=== PATIENT | male | born 1970 | race Caucasian/White ===

== ENCOUNTER 2019-05-07 09:42 | Observation (INO) | payer BC ==
[2019-05-07] MEDS ORDERED: ONDANSETRON 4 MG/2 ML VIAL IVP STA ×2 (10:34→14:30)
[2019-05-07] MEDS ORDERED: MORPHINE SULFATE 4 MG/ML SYRINGE IV STA (10:34)
[2019-05-07] MEDS ORDERED: PANTOPRAZOLE 40 MG/10 ML VIAL IVP STA (10:34)
--- NOTE | 2019-05-07 10:43 | ED ---
Abdominal Pain HPI - General Chief Complaint: Abdominal Pain Stated Complaint: Lower abd pain Time Seen by Provider: 05/07/19 10:14 Source: patient Mode of arrival: ambulatory Limitations: no limitations - History of Present Illness Initial Comments: Patient is a 49-year-old male with recent diagnosis of leukemia presenting to emergency Department with a chief complaint of nausea vomiting abdominal pain. States about 3 weeks ago he was transitioned to oral chemotherapy which she takes daily. States when he began taking oral medication he also developed right-sided abdominal pain along with nausea and vomiting but it resolved after several hours. States this time the pain is started since 3 AM and has not resolved. States the pain is sharp and constant in nature. States the pain is a 7. Reports nausea with multiple episodes of nonbilious, nonbloody vomiting. States he is not able to keep any fluids or solids down. Denies any fevers or chills at home. Denies taking any other medication to alleviate the symptoms. Denies any urinary symptoms. Denies any testicular pain, swelling, or penile discharge. Denies hematuria, hematochezia or melena. - Related Data Previous Rx's Medication Instructions Recorded Aspirin EC [Ecotrin Low Dose] 81 mg PO DAILY tablet. 08/01/14 Atorvastatin [Lipitor] 40 mg PO DAILY #30 tab 08/01/14 Chlorthalidone [Hygroton] 25 mg PO DAILY #30 tab 08/01/14 INSULIN LISPRO (humaLOG) [humaLOG] 0 unit SQ ACHS #1 vial 08/01/14 INSULIN LISPRO (humaLOG) [humaLOG] 10 unit SQ AC-TID #1 vial 08/01/14 Insulin Glargine [Lantus] 42 unit SQ HS #1 vial 08/01/14 Lisinopril [Zestril] 10 mg PO DAILY #30 tab 08/01/14 Spironolactone [Aldactone] 25 mg PO DAILY #30 tab 08/01/14 Carvedilol [Coreg*] 12.5 mg PO BID-W/MEALS #60 tab 08/04/14 Warfarin Sodium [Coumadin] 5 mg PO DAILY #30 tab 08/04/14 amLODIPine [Norvasc] 5 mg PO HS #30 tab 08/04/14 hydrALAZINE HCL [Apresoline] 50 mg PO BID #60 tab 08/04/14 Allergies Allergy/AdvReac Type Severity Reaction Status Date / Time No Known Allergies Allergy Verified 07/27/14 10:02 Review of Systems ROS Statement: Those systems with pertinent positive or pertinent negative responses have been documented in the HPI. ROS Other: All systems not noted in ROS Statement are negative. Past Medical History Past Medical History: Cancer Additional Past Medical History / Comment(s): Hypertension and hypertensive cardio vascular disease, diabetes mellitus type 2 for the past 5 years, hyperlipidemia, obesity, obstructive sleep apnea with obesity hypertension syndrome, history of tongue cancer. leukemia History of Any Multi-Drug Resistant Organisms: None Reported Additional Past Surgical History / Comment(s): Cancer removed from the side of the tongue. Past Anesthesia/Blood Transfusion Reactions: No Reported Reaction Past Psychological History: No Psychological Hx Reported Smoking Status: Former smoker Past Alcohol Use History: Unable to Obtain Past Drug Use History: Unable to Obtain - Past Family History Mother Family Medical History: Musculoskeletal Disorder (Mother is alive she 67-year-old has history of osteogenesis imperfecta.), Osteoarthritis (OA) Father Family Medical History: Diabetes Mellitus, Hypertension, Thyroid Disorder (Father 69-year-old has history of diabetes hypertension and hypothyroidism.) Sister(s) Family Medical History: Musculoskeletal Disorder (Patient has 2 sisters with osteogenesis imperfecta.) Daughter(s) Family Medical History: No Reported History (One daughter no major medical problems.) Son(s) Family Medical History: No Reported History (Once on no major medical problems.) General Exam Limitations: no limitations General appearance: alert, in no apparent distress, obese Head exam: Present: atraumatic, normocephalic, normal inspection Eye exam: Present: normal appearance Pupils: Present: normal accommodation ENT exam: Present: normal exam, normal oropharynx, mucous membranes moist Neck exam: Present: normal inspection, full ROM. Absent: lymphadenopathy Respiratory exam: Present: normal lung sounds bilaterally. Absent: respiratory distress Cardiovascular Exam: Present: regular rate, normal rhythm, normal heart sounds GI/Abdominal exam: Present: soft, tenderness (Right upper quadrant, right lower quadrant.). Absent: distended, guarding, rebound, rigid Extremities exam: Present: normal inspection, full ROM, normal capillary refill, other (+2 ulnar and radial pulses bilaterally.) Back exam: Present: normal inspection, full ROM. Absent: tenderness Neurological exam: Present: alert, oriented X3 Psychiatric exam: Present: normal affect, normal mood Skin exam: Present: warm, dry, intact, normal color Course Vital Signs 05/07/19 05/07/19 05/07/19 09:46 11:48 12:35 Temperature 97.5 F L 97.4 F L Pulse Rate 67 67 71 Respiratory 19 18 18 Rate Blood Pressure 186/94 170/91 182/97 O2 Sat by Pulse 100 99 98 Oximetry 05/07/19 14:15 Temperature 97.8 F Pulse Rate 69 Respiratory 18 Rate Blood Pressure 168/87 O2 Sat by Pulse 98 Oximetry Medical Decision Making - Medical Decision Making Patient is a 49-year-old male with history of recently diagnosed leukemia presenting to the emergency department with a chief complaint of abdominal pain nausea vomiting. I patient does have right upper quadrant tenderness with a positive Joya sign. Does have right lower quadrant with positive Gunn McBurney point tenderness. Right CVA tenderness. No urinary symptoms. Patient initially suspect this is due to chemo. Patient given fluids antiemetics and analgesia. On reevaluation patient reports improvement in the pain but nausea still persists. By mouth challenge failed. CBC does show anemia which has improved since the last blood draw. CT of abdomen and pelvis shows right-sided hydronephrosis with a 3 mm obstructing stone. Initial labs indicate hyperkalemia of 5.6. Labs were drawn showing potassium levels of 5.2. I suspect the sample was hemolyzed. UA shows hematuria. Patient does have decreased renal function although that appears to be his baseline. Patient states the pain in the right side of his abdomen still persist. Patient feels comfortable if he is admitted for at least one night of observation. Case discussed with . Admitting physician is Dr. Duran - Lab Data Result diagrams: 05/07/19 10:20 05/07/19 12:43 Lab Results 05/07/19 05/07/19 05/07/19 Range/Units 10:20 10: 12:43 WBC 4.6 (3.8-10.6) k/uL RBC 3.18 L (4.30-5.90) m/uL Hgb 9.9 L (13.0-17.5) gm/dL Hct 29.1 L (39.0-53.0) % MCV 91.6 D (80.0-100.0) fL MCH 31.3 (25.0-35.0) pg MCHC 34.2 (31.0-37.0) g/dL RDW 22.1 H (11.5-15.5) % Plt Count 90 L D (150-450) k/uL Neutrophils % 85 % Lymphocytes % 7 % Monocytes % 6 % Eosinophils % 1 % Basophils % 0 % Neutrophils # 3.9 (1.3-7.7) k/uL Lymphocytes # 0.3 L (1.0-4.8) k/uL Monocytes # 0.3 (0-1.0) k/uL Eosinophils # 0.0 (0-0.7) k/uL Basophils # 0.0 (0-0.2) k/uL Manual Slide Review Performed Hyperchromasia Slight Poikilocytosis Moderate Anisocytosis Moderate Macrocytosis Slight Sodium 136 L 134 L (137-145) mmol/L Potassium 5.6 H 5.2 H (3.5-5.1) mmol/L Chloride 102 103 (98-107) mmol/L Carbon Dioxide 22 22 (22-30) mmol/L Anion Gap 12 9 mmol/L BUN 23 H 24 H (9-20) mg/dL Creatinine 1.31 H 1.39 H (0.66-1.25) mg/dL Est GFR (CKD-EPI)AfAm 73 68 (>60 ml/min/1.73 sqM) Est GFR (CKD-EPI)NonAf 63 59 (>60 ml/min/1.73 sqM) Glucose 196 H 183 H (74-99) mg/dL Calcium 9.0 8.6 (8.4-10.2) mg/dL Total Bilirubin 1.3 (0.2-1.3) mg/dL AST 24 (17-59) U/L ALT 23 (4-49) U/L Alkaline Phosphatase 74 (38-126) U/L Total Protein 7.5 (6.3-8.2) g/dL Albumin 5.0 (3.5-5.0) g/dL Amylase 39 (30-110) U/L Lipase 60 (23-300) U/L Urine Color Urine Appearance (Clear) Urine pH (5.0-8.0) Ur Specific Maryneal (1.001-1.035) Urine Protein (Negative) Urine Glucose (UA) (Negative) Urine Ketones (Negative) Urine Blood (Negative) Urine Nitrite (Negative) Urine Bilirubin (Negative) Urine Urobilinogen (<2.0) mg/dL Ur Leukocyte Esterase (Negative) Urine RBC (0-5) /hpf Urine WBC (0-5) /hpf Ur Squamous Epith Cells (0-4) /hpf Urine Bacteria (None) /hpf Urine Mucus (None) /hpf 05/07/19 Range/Units 12:49 WBC (3.8-10.6) k/uL RBC (4.30-5.90) m/uL Hgb (13.0-17.5) gm/dL Hct (39.0-53.0) % MCV (80.0-100.0) fL MCH (25.0-35.0) pg MCHC (31.0-37.0) g/dL RDW (11.5-15.5) % Plt Count (150-450) k/uL Neutrophils % % Lymphocytes % % Monocytes % % Eosinophils % % Basophils % % Neutrophils # (1.3-7.7) k/uL Lymphocytes # (1.0-4.8) k/uL Monocytes # (0-1.0) k/uL Eosinophils # (0-0.7) k/uL Basophils # (0-0.2) k/uL Manual Slide Review Hyperchromasia Poikilocytosis Anisocytosis Macrocytosis Sodium (137-145) mmol/L Potassium (3.5-5.1) mmol/L Chloride (98-107) mmol/L Carbon Dioxide (22-30) mmol/L Anion Gap mmol/L BUN (9-20) mg/dL Creatinine (0.66-1.25) mg/dL Est GFR (CKD-EPI)AfAm (>60 ml/min/1.73 sqM) Est GFR (CKD-EPI)NonAf (>60 ml/min/1.73 sqM) Glucose (74-99) mg/dL Calcium (8.4-10.2) mg/dL Total Bilirubin (0.2-1.3) mg/dL AST (17-59) U/L ALT (4-49) U/L Alkaline Phosphatase (38-126) U/L Total Protein (6.3-8.2) g/dL Albumin (3.5-5.0) g/dL Amylase (30-110) U/L Lipase (23-300) U/L Urine Color Yellow Urine Appearance Clear (Clear) Urine pH 5.5 (5.0-8.0) Ur Specific Maryneal 1.019 (1.001-1.035) Urine Protein 1+ H (Negative) Urine Glucose (UA) Trace H (Negative) Urine Ketones Negative (Negative) Urine Blood Large H (Negative) Urine Nitrite Negative (Negative) Urine Bilirubin Negative (Negative) Urine Urobilinogen <2.0 (<2.0) mg/dL Ur Leukocyte Esterase Negative (Negative) Urine RBC >182 H (0-5) /hpf Urine WBC 5 (0-5) /hpf Ur Squamous Epith Cells <1 (0-4) /hpf Urine Bacteria Rare H (None) /hpf Urine Mucus Rare H (None) /hpf - EKG Data EKG Comments: Normal sinus rhythm, no ST changes, no T-wave inversions. Ventricular rate 67, NH 190, QRS 94, QTC 439 Disposition Clinical Impression: Nephrolithiasis, Abdominal pain, Nausea & vomiting Disposition: ADMITTED IP TO THIS HOSP Condition: Stable Instructions (If sedation given, give patient instructions): Abdominal Pain (ED) Additional Instructions: Patient will be admitted Is patient prescribed a controlled substance at d/c from ED?: No Referrals: Natanael Flores MD [Primary Care Provider] - 1-2 days Time of Disposition: 14:36
[2019-05-07 11:19] LABS: Anisocytosis Moderate; Basophils % (A) 0 %; Eosinophils % (A) 1 %; HCT 29.1 % (39.0-53.0); HGB 9.9 gm/dL (13.0-17.5); Hyperchromasia Slight; Lymphocytes # (A) 0.3 k/uL (1.0-4.8); Lymphocytes % (A) 7 %; MCH 31.3 pg (25.0-35.0); MCHC 34.2 g/dL (31.0-37.0); Macrocytosis Slight; Mean Platelet Volume 8.8; Monocytes # (A) 0.3 k/uL (0-1.0); Monocytes % (A) 6 %; Neutrophils # (A) 3.9 k/uL (1.3-7.7); Neutrophils % (A) 85 %; Poikilocytosis Moderate; RBC 3.18 m/uL (4.30-5.90); RDW 22.1 % (11.5-15.5); WBC 4.6 k/uL (3.8-10.6)
[2019-05-07 11:22] LABS: MCV 91.6 fL (80.0-100.0)
[2019-05-07 11:32] LABS: Platelet Count 90 k/uL (150-450)
[2019-05-07 11:39] LABS: Potassium 5.6 mmol/L (3.5-5.1); Total Bilirubin 1.3 mg/dL (0.2-1.3); Total Protein 7.5 g/dL (6.3-8.2)
--- NOTE | 2019-05-07 12:25 | CT ---
EXAMINATION TYPE: CT abdomen pelvis w con DATE OF EXAM: 05/07/2019 COMPARISON: None HISTORY: Right lower quadrant tenderness CT DLP: 2918 mGycm Automated exposure control for dose reduction was used. CONTRAST: CT scan of the abdomen pelvis is performed with IV Contrast, patient injected with 100 mL of Isovue 3 00. FINDINGS- exam limited by suboptimal enhancement. LUNG BASES-subsegmental changes at the lung base most typical atelectasis. Heart is mildly prominent. . LIVER/GB-there is hepatomegaly with a liver measuring 19.4 cm.. PANCREAS- No gross abnormality is seen. SPLEEN-spleen measures 19.7 cm compatible splenomegaly.. ADRENALS- No gross abnormality is seen. KIDNEYS/BLADDER-there is moderate right hydronephrosis secondary to a obstructing 3 mm proximal right ureteral calculus. No definite calcifications on the left. No left-sided hydronephrosis. Mild right perinephric edema noted. BOWEL- no bowel dilatation. Normal appendix. LYMPH NODES- No greater than 1cm abdominal or pelvic lymph nodes areappreciated. OSSEOUS STRUCTURES-hypertrophic and degenerative change of the spine.. OTHER- aorta of normal caliber. Atherosclerotic changes are seen. IMPRESSION- 1. Moderate right hydronephrosis secondary to obstructing 3 mm right proximal ureteral calculus. 2. Hepatosplenomegaly as measured above. Could be secondary to the patient's history of leukemia. Cor relate with liver function studies.
[2019-05-07 13:27] LABS: Appearance,Urine Clear (Clear); Bacteria,Urine Rare /hpf; Bilirubin,Urine Negative (Negative); Blood,Urine Large (Negative); Color,Urine Yellow; Glucose,Urine (UA) Trace (Negative); Ketones,Urine Negative (Negative); Leukocyte Esterase,Urine Negative (Negative); Mucus,Urine Rare /hpf; Nitrite,Urine Negative (Negative); PH, Urine 5.5 (5.0-8.0); Protein,Urine 1+ (Negative); RBC,Urine >182 /hpf (0-5); Specific Gravity,Urine 1.019 (1.001-1.035); Squamous Epithelial Cell,Urine <1 /hpf (0-4); Urobilinogen,Urine <2.0 mg/dL (<2.0); WBC,Urine 5 /hpf (0-5)
[2019-05-07 14:00] LABS: Calcium 8.6 mg/dL (8.4-10.2); Potassium 5.2 mmol/L (3.5-5.1)
[2019-05-07] MEDS ORDERED: HYDROcodone/APAP 5-325MG 1 EACH TAB PO PRN (14:38)
[2019-05-07] MEDS ORDERED: NALOXONE 0.4 MG/ML 1 ML VIAL IV PRN (14:38)
[2019-05-07] MEDS ORDERED: LORazepam 2 MG/ML INJ IV PRN (14:38)
[2019-05-07] MEDS ORDERED: HYDROmorphone 0.5 MG/0.5 ML SYRINGE IVP PRN (14:38)
[2019-05-07] MEDS ORDERED: MORPHINE SULFATE 4 MG/ML SYRINGE IV PRN (14:38)
[2019-05-07] MEDS ORDERED: ONDANSETRON 4 MG/2 ML VIAL IVP PRN (14:38)
[2019-05-07] MEDS: SODIUM CHLORIDE 0.9% 1,000 ML IV SCH (19:02)
[2019-05-08 05:09] VITALS: RESP 16
[2019-05-08 07:17] LABS: Glucose,Whole Blood 111 mg/dL (75-99)
[2019-05-08] MEDS: SODIUM CHLORIDE 0.9% 1,000 ML IV SCH (07:56)
[2019-05-08 11:11] LABS: Glucose,Whole Blood 133 mg/dL (75-99)
[2019-05-08] MEDS ORDERED: TAMSULOSIN 0.4 MG CAP.ER.24H PO STA (11:41)
[2019-05-08 11:44] VITALS: BP 153/82; PULSE 69; TEMP 97.7
[2019-05-08] MEDS ORDERED: INSULIN ASPART (NovoLOG) 100 UNIT/ML VIAL SQ SCH (12:30)
--- NOTE | 2019-05-08 12:35 | US ---
EXAMINATION TYPE: US kidneys/renal and bladder DATE OF EXAM: 05/08/2019 COMPARISON: CT 2019 CLINICAL HISTORY: hydronephrosis, passed stone. History of right kidney stone, hematuria EXAM MEASUREMENTS: Right Kidney: 12.5 x 7.3 x 5.8 cm Left Kidney: 12.5 x 6.4 x 6.0 cm Right Kidney: mild hydronephrosis Left Kidney: no hydronephrosis or masses seen Bladder: wnl Bilateral Jets seen: no There is no evidence for hydronephrosis at this point in time. No nephrolithiasis is seen. No tariq s are identified. The urinary bladder is anechoic. Bilateral ureteral jets are seen. IMPRESSION: Mild hydronephrosis
--- NOTE | 2019-05-08 17:03 | P.GSCN ---
History of Present Illness Consult date: 05/08/19 Reason for Consult: right sided ureteral calculi History of present illness: Mr Matute is a 49-year-old male with recent diagnosis of leukemia presented to the ED with right sided flank pain that is associated with nausea and vomiting. He also complained of hematuria, but ludy any dysuria or any other urinary symptoms. Denies any fever/chills. In ED he underwent a CT which showed a 3 mm right sided proximal stone with mild hydronephrosis. He denies any previous hx of stones. In evaluation this afternoon he is asymptomatic. Review of Systems - Constitutional Denies chills, Denies fever, Denies weakness - EENT Ears, nose, mouth and throat: Denies dysphagia, Denies headache - Cardiovascular Denies chest pain, Denies shortness of breath - Respiratory Denies cough, Denies wheezing - Gastrointestinal Reports nausea, Reports vomiting - Genitourinary Reports flank pain, Reports kidney stones - Musculoskeletal Denies low back pain, Denies muscle weakness - Neurological Denies confusion, Denies weakness - Psychiatric Denies confusion, Denies hallucinations Past Medical History Past Medical History: Cancer, CVA/TIA, Diabetes Mellitus, Hyperlipidemia, Hypertension Additional Past Medical History / Comment(s): Hypertension and hypertensive cardio vascular disease, diabetes mellitus type 2 for the past 5 years, hyperlipidemia, obesity, obstructive sleep apnea with obesity hypertension syndr ome, history of tongue cancer. leukemia, CVA left sided weakness. History of Any Multi-Drug Resistant Organisms: None Reported Past Surgical History: Heart Catheterization Additional Past Surgical History / Comment(s): Cancer removed from the side of the tongue. Bone marrow biopsy, heart cath Past Anesthesia/Blood Transfusion Reactions: No Reported Reaction Past Psychological History: No Psychological Hx Reported Smoking Status: Former smoker Past Alcohol Use History: Unable to Obtain Additional Past Alcohol Use History / Comment(s): Patient was a smoker of one and a half packs per day for 30 years and quit 10 years ago. He uses marijuana Past Drug Use History: Marijuana Additional Drug Use History / Comment(s): occasional eatable marijuana use. - Past Family History Mother Family Medical History: Musculoskeletal Disorder, Osteoarthritis (OA) Additional Family Medical History / Comment(s): Mother Father Family Medical History: Diabetes Mellitus, Hypertension, Thyroid Disorder Sister(s) Family Medical History: Musculoskeletal Disorder Additional Family Medical History / Comment(s): Patient has 2 sisters with osteogenesis imperfecta. Daughter(s) Family Medical History: No Reported History Additional Family Medical History / Comment(s): Patient has one daughter with no major medical problems. Son(s) Family Medical History: No Reported History Additional Family Medical History / Comment(s): Patient has one son with no major medical problems. Medications and Allergies Home Medications Medication Instructions Recorded Confirmed Type Atorvastatin [Lipitor] 40 mg PO HS@199905/07/19 05/07/19 History Carvedilol [Coreg*] 12.5 mg PO BID@08,199905/07/19 05/07/19 History Dasatinib [Sprycel] 100 mg PO HS@199905/07/19 05/07/19 History Gemfibrozil [Lopid] 600 mg PO AC-BID@799,199905/07/19 05/07/19 History Insulin Glargine,Hum.rec.anlog See Protocol SQ AC-BID 05/07/19 05/07/19 History [Toujeo Solostar] Levothyroxine Sodium [Synthroid] 75 mcg PO DAILY@0805/07/19 05/07/19 History Sennosides [Senna] 8.6 mg PO DAILY@0800 05/07/19 05/07/19 History Spironolactone [Aldactone] 25 mg PO DAILY@0800 05/07/19 05/07/19 History Allopurinol [Zyloprim] 100 mg PO DAILY #30 tab 05/08/19 Rx Ondansetron [Zofran] 4 mg PO Q8HR PRN #30 tab 05/08/19 Rx Tamsulosin [Flomax] 0.4 mg PO DAILY #30 cap 05/08/19 Rx Allergies Allergy/AdvReac Type Severity Reaction Status Date / Time No Known Allergies Allergy Verified 05/07/19 16:14 Surgical - Exam Vital Signs Temp Pulse Resp BP Pulse Ox 97.5 F L 67 19 186/94 100 05/07/19 09:46 05/07/19 09:46 05/07/19 09:46 05/07/19 09:46 05/07/19 09:46 - General well developed, well nourished, no distress, no pain - ENT normal mucosa, no hearing loss - Abdomen Abdomen: soft, non tender - Psychiatric oriented to time, oriented to person, oriented to place, speech is normal Results - Labs 05/07/19 10:20 05/07/19 12:43 Abnormal Lab Results - Last 24 Hours (Table) 05/08/19 05/08/19 Range/Units 07:16 11:10 POC Glucose (mg/dL) 111 H 133 H (75-99) mg/dL - Imaging CT scan - abdomen: image reviewed (3 mm right sided proximal stone) Assessment and Plan Assessment: 49 yo male with hx of 3mm right sided proximal stone, he is asymptomatic right now. no previous hx of stone -Ok for discharge as an outpatient, trial of passage, I discussed with him given the stone size he most likely will be able to pass it spontaneously -F/U as an outpatient in 2 weeks
[2019-05-08] MEDS ORDERED: FENOFIBRATE 160 MG TAB PO SCH (17:30)
[2019-05-08] MEDS ORDERED: NON FORMULARY DRUG (Dasatinib [Sprycel] 100 MG) PO SCH (20:00)
[2019-05-08] MEDS ORDERED: CARVEDILOL 12.5 MG TAB PO SCH (20:00)
[2019-05-08] MEDS ORDERED: ATORVASTATIN 40 MG TAB PO SCH (20:00)
[2019-05-08] MEDS ORDERED: HEPARIN SODIUM,PORCINE 5,000 UNIT/ML 1 ML VIAL SQ SCH (21:00)
[2019-05-09] MEDS ORDERED: PANTOPRAZOLE 40 MG TABLET PO SCH (07:30)
[2019-05-09] MEDS ORDERED: SENNOSIDES 8.6 MG TAB PO SCH (08:00)
[2019-05-09] MEDS ORDERED: LEVOTHYROXINE 75 MCG TAB PO SCH (08:00)
[2019-05-09] MEDS ORDERED: SPIRONOLACTONE 25 MG TAB PO SCH (08:00)
--- NOTE | 2019-05-09 08:23 | P.HPIM ---
History of Present Illness H&P Date: 05/08/19 Chief Complaint: Nausea, vomiting, abdominal pain HISTORY AND PHYSICAL AND DISCHARGE SUMMARY: This is a 49-year-old male patient of Dr. 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 Patient is under the care of Dr. 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 He was on Hydrea for 3 months and then changed to dasatinib for approximately the last 3 weeks. Patient denies any history of kidney stones. Patient had a stress test done with Dr. Marroquin's office on Sunday by Sunday evening he started having pain along with nausea and vomiting. Pain was on the right side sharp and rated as a #7 out of 10. He had multiple episodes of vomiting and was unable to keep any food or liquids down. He denies having any fever or chills. Patient came into [facility] emergency center for evaluation. WBC 4.6, hemoglobin 9.9, platelet count 90. Sodium 134, potassium 5.2, chloride 103, CO2 22, BUN 24 and creatinine 1.39, blood sugar 183. Liver function tests within normal limits. Urinalysis clear, blood large, RBCs greater than 182. EKG normal sinus rhythm with no acute ST-T wave changes. CAT scan of the abdomen and pelvis revealed moderate right hydronephrosis secondary to obstructive 3 mm right proximal ureteral calculi, hepatosplenomegaly. Patient admitted to the [facility] floor and consult request with urology. By the time of evaluation, patient felt that he had passed the stone as his pain was completely relieved. We ordered a renal ultrasound that showed a mild hydronephrosis. Uric acid level VII.5 and patient was started on allopurinol. Patient did have extremely high uric acid at that time he was diagnosed with CML and he was taken off his medication once he started his chemotherapy. Patient was also started on Flomax and Zofran when necessary. Patient was discharged home in stable condition. Review of Systems Constitutional: Denies chills, Denies fatigue, Denies fever, Denies lethargy, Denies malaise Eyes: denies blurred vision, denies pain Ears, nose, mouth and throat: Denies dental pain, Denies dysphagia, Denies headache, Denies nasal congestion, Denies nasal discharge, Denies sore throat, Denies vertigo Cardiovascular: Denies chest pain, Denies decreased exercise tolerance, Denies dyspnea on exertion, Denies edema, Denies leg edema, Denies lightheadedness, Denies palpitations, Denies shortness of breath, Denies syncope Respiratory: Reports sleep apnea, Denies cough, Denies cough with sputum, Denies dyspnea, Denies excessive sputum, Denies hemoptysis, Denies home oxygen, Denies respiratory infections, Denies wheezing Gastrointestinal: Reports abdominal pain, Reports loss of appetite, Reports nausea, Reports vomiting, Denies diarrhea Genitourinary: Reports hematuria, Reports kidney stones, Denies dysuria Musculoskeletal: Denies frequent falls, Denies gait dysfunction, Denies muscle weakness, Denies myalgias Integumentary: Denies pruritus, Denies rash, Denies wounds Neurological: Denies change in mentation, Denies change in speech, Denies numbness, Denies seizures, Denies weakness Psychiatric: Denies anxiety, Denies depression Endocrine: Denies fatigue, Denies weight change Past Medical History Past Medical History: Cancer, CVA/TIA, Diabetes Mellitus, Hyperlipidemia, Hypertension Additional Past Medical History / Comment(s): Hypertension and hypertensive cardio vascular disease, diabetes mellitus type 2 for the past 5 years, hyperlipidemia, obesity, obstructive sleep apnea with obesity hypertension syndrome, history of tongue cancer. leukemia, CVA left sided weakness. History of Any Multi-Drug Resistant Organisms: None Reported Past Surgical History: Heart Catheterization Additional Past Surgical History / Comment(s): Cancer removed from the side of the tongue. Bone marrow biopsy, heart cath Past Anesthesia/Blood Transfusion Reactions: No Reported Reaction Past Psychological History: No Psychological Hx Reported Smoking Status: Former smoker Past Alcohol Use History: Unable to Obtain Additional Past Alcohol Use History / Comment(s): Patient was a smoker of one and a half packs per day for 30 years and quit 10 years ago. He uses marijuana Past Drug Use History: Marijuana Additional Drug Use History / Comment(s): occasional eatable marijuana use. - Past Family History Mother Family Medical History: Musculoskeletal Disorder, Osteoarthritis (OA) Additional Family Medical History / Comment(s): Mother mother is alive at age 73 with history of osteogenesis imperfecta, osteoarthritis. Father Family Medical History: Diabetes Mellitus, Hypertension, Thyroid Disorder Additional Family Medical History / Comment(s): Father is alive at age 75 with history of diabetes, hypertension and hypothyroidism. Sister(s) Family Medical History: Musculoskeletal Disorder Additional Family Medical History / Comment(s): Patient has 2 sisters with osteogenesis imperfecta. Daughter(s) Family Medical History: No Reported History Additional Family Medical History / Comment(s): Patient has one daughter with no major medical problems. Son(s) Family Medical History: No Reported History Additional Family Medical History / Comment(s): Patient has one son with no major medical problems. Medications and Allergies Home Medications Medication Instructions Recorded Confirmed Type Atorvastatin [Lipitor] 40 mg PO HS@199905/07/19 05/07/19 History Carvedilol [Coreg*] 12.5 mg PO BID@799,199905/07/19 05/07/19 History Dasatinib [Sprycel] 100 mg PO HS@199905/07/19 05/07/19 History Gemfibrozil [Lopid] 600 mg PO AC-BID@799,199905/07/19 05/07/19 History Insulin Glargine,Hum.rec.anlog See Protocol SQ AC-BID 05/07/19 05/07/19 History [Toujeo Solostar] Levothyroxine Sodium [Synthroid] 75 mcg PO DAILY@0805/07/19 05/07/19 History Sennosides [Senna] 8.6 mg PO DAILY@0805/07/19 05/07/19 History Spironolactone [Aldactone] 25 mg PO DAILY@0800 05/07/19 05/07/19 History Allopurinol [Zyloprim] 100 mg PO DAILY #30 tab 05/08/19 Rx Ondansetron [Zofran] 4 mg PO Q8HR PRN #30 tab 05/08/19 Rx Tamsulosin [Flomax] 0.4 mg PO DAILY #30 cap 05/08/19 Rx Allergies Allergy/AdvReac Type Severity Reaction Status Date / Time No Known Allergies Allergy Verified 05/07/19 16:14 Physical Exam Vitals: Vital Signs Temp Pulse Pulse Resp BP BP Pulse Ox 05/08/19 05:09 98.1 F 72 16 140/81 97 05/07/19 23:29 97.8 F 72 18 182/91 100 05/07/19 19:00 73 18 173/95 100 05/07/19 17:00 74 18 183/96 98 05/07/19 14:15 97.8 F 69 18 168/87 98 05/07/19 12:35 71 18 182/97 98 05/07/19 11:48 97.4 F L 67 18 170/91 99 Intake and Output 05/07/19 05/08/19 05/08/19 22:59 06:59 14:59 Intake Total 1115 Balance 1115 Intake: Intake, IV Titration 525 Amount Sodium Chloride 0.9% 1, 525 000 ml @ 75 mls/hr IV . [id number] [facility] Rx#:[id number] Oral 590 Other: Voiding Method Toilet # Voids 2 Weight 140.16 kg Patient is sitting up in bed in no apparent distress at the time of evaluation. HEENT: Head is traumatic, normocephalic, pupils were equal round reactive to light and accommodations, extraocular muscle movement were intact. Neck: Supple, no JVP, no carotid bruit, no lymphadenopathy. Chest: Clear to auscultation, no accessory muscle usage, No Chest Wall Tenderness. Heart: First heart sound is depressed, second heart sound is normal, no gallop no murmur. Abdomen: Soft, obese, no hepatosplenomegaly, positive bowel sounds. No abdominal tenderness, no flank tenderness Extremities: Trace bilateral edema, no calf tenderness, dorsalis pedis +2 bilaterally. Neurologic summation: Awake alert and oriented 3, cranial nerves III-12 appear to be grossly intact. Results CBC & Chem 7: 05/07/19 10:20 05/07/19 12:43 Labs: Abnormal Lab Results - Last 24 Hours (Table) 05/07/19 05/07/19 05/07/19 Range/Units 10:20 10: 12:43 RBC 3.18 L (4.30-5.90) m/uL Hgb 9.9 L (13.0-17.5) gm/dL Hct 29.1 L (39.0-53.0) % RDW 22.1 H (11.5-15.5) % Plt Count 90 L D (150-450) k/uL Lymphocytes # 0.3 L (1.0-4.8) k/uL Sodium 136 L 134 L (137-145) mmol/L Potassium 5.6 H 5.2 H (3.5-5.1) mmol/L BUN 23 H 24 H (9-20) mg/dL Creatinine 1.31 H 1.39 H (0.66-1.25) mg/dL Glucose 196 H 183 H (74-99) mg/dL POC Glucose (mg/dL) (75-99) mg/dL Urine Protein (Negative) Urine Glucose (UA) (Negative) Urine Blood (Negative) Urine RBC (0-5) /hpf Urine Bacteria (None) /hpf Urine Mucus (None) /hpf 05/07/19 05/08/19 Range/Units 12:49 07:16 RBC (4.30-5.90) m/uL Hgb (13.0-17.5) gm/dL Hct (39.0-53.0) % RDW (11.5-15.5) % Plt Count (150-450) k/uL Lymphocytes # (1.0-4.8) k/uL Sodium (137-145) mmol/L Potassium (3.5-5.1) mmol/L BUN (9-20) mg/dL Creatinine (0.66-1.25) mg/dL Glucose (74-99) mg/dL POC Glucose (mg/dL) 111 H (75-99) mg/dL Urine Protein 1+ H (Negative) Urine Glucose (UA) Trace H (Negative) Urine Blood Large H (Negative) Urine RBC >182 H (0-5) /hpf Urine Bacteria Rare H (None) /hpf Urine Mucus Rare H (None) /hpf Thrombosis Risk Factor Assmnt - DVT/VTE Prophylaxis DVT/VTE Prophylaxis: Pharmacologic Prophylaxis ordered - Choose All That Apply Any of the Below Risk Factors Present?: Yes Each Factor Represents 1 point: Age 41-60 years, Obesity (BMI >25), Swollen legs (current) Other Risk Factors: No Other congenital or acquired thrombophilia - If yes, enter type in comment: No Thrombosis Risk Factor Assessment Total Risk Factor Score: 3 Thrombosis Risk Factor Assessment Level: Moderate Risk Assessment and Plan Plan: 1. Acute kidney injury secondary to obstructive uropathy. 2. Moderate right hydronephrosis secondary to obstructive 3 mm right proximal ureteral calculi. Consult with urology appreciated. Ultrasound reveals mild hydronephrosis. 3. CML. Patient is under the care of Dr. Briceño. 4. Diabetes mellitus type 2 insulin requiring. Continue NovoLog scale, consistent carb diet. 5. Hypertension. Patient resumed on Coreg 12.5 mg twice daily and Aldactone 25 mg daily. 6. Hypothyroidism. Continue levothyroxine 75 g daily. 7. Hyperlipidemia. Continue atorvastatin 40 mg daily. 8. History of tongue cancer status post resection. 9. Remote history of tobacco use and dependence. 10. Obstructive sleep apnea. 11. Morbid obesity with BMI of 44. 12. GI prophylaxis. Protonix. 13. DVT prophylaxis. Heparin subcu. Patient will be admitted to the hospital for a minimum of 1 night stay. Discharge plan: home. Discharge Medication List Atorvastatin [Lipitor] 40 mg PO HS@199905/07/19 [History] Carvedilol [Coreg*] 12.5 mg PO BID@08,199905/07/19 [History] Dasatinib [Sprycel] 100 mg PO HS@199905/07/19 [History] Gemfibrozil [Lopid] 600 mg PO AC-BID@08,199905/07/19 [History] Insulin Glargine,Hum.rec.anlog [[place] Berumen] See Protocol SQ AC-BID 05/07/19 [History] Levothyroxine Sodium [Synthroid] 75 mcg PO DAILY@0805/07/19 [History] Sennosides [Senna] 8.6 mg PO DAILY@0800 05/07/19 [History] Spironolactone [Aldactone] 25 mg PO DAILY@0800 05/07/19 [History] Allopurinol [Zyloprim] 100 mg PO DAILY #30 tab 05/08/19 [Rx] Ondansetron [Zofran] 4 mg PO Q8HR PRN #30 tab 05/08/19 [Rx] Tamsulosin [Flomax] 0.4 mg PO DAILY #30 cap 05/08/19 [Rx] Impression and plan of care have been directed as dictated by the signing physician. Holly Quiroz nurse practitioner acting as scribe for signing physicianKailyn sarabia
--- NOTE | 2019-05-13 09:37 | CDI ---
Documentation Clarification Form Date: 05/13/19 From: Yamileth Rader CCS Phone: If you have a question about this query, please contact Connie Painter, Information Technology Associate at [phone] between 8am and 5pm. Admit Date: 05/07/19 Discharge Date:05/08/19 Patient Name: Jn Matute Visit Number: [id number] ATTENTION: The Clinical Documentation Specialists (CDI) and [facility] Coding Staff appreciate your assistance in clarifying documentation. Please respond to the clarification below the line at the bottom and electronically sign. The CDI & [facility] Coding staff will review the response and follow-up if needed. Please note: Queries are made part of the Legal Health Record. If you have any questions, please contact the author of this message via ITS. Dear Dr. Duran, Documentation states: Sodium 134 History/Risk Factors: CML, Chemo, Obesity, Hypothyroid Clinical indicators: Nausea/vomiting Abnormal Sodium: 134, 136 Treatment: Sodium Chloride 0.9% 1000 ml IV 75 mls/hr Clinical significance of diagnostic testing and treatment CANNOT be assumed or coded without physician documentation of significance if any. Please clarify what abnormal laboratory signifies: Hyponatremia Disease process, please specify Infectious process, please specify Abnormal Lab Value Unable to determine Other, please specify MTDD
--- NOTE | 2019-05-23 10:43 | CDI ---
Documentation Clarification Form Date: 05/23/19 From: Yamileth Rader CCS Phone: If you have a question about this query, please contact Connie Painter, Linux Network Engineer at [phone] between 8am and 5pm. Admit Date: 05/07/19 Discharge Date:05/08/19 Patient Name: Jn Matute Visit Number: [id number] ATTENTION: The Clinical Documentation Specialists (CDI) and [facility] Coding Staff appreciate your assistance in clarifying documentation. Please respond to the clarification below the line at the bottom and electronically sign. The CDI & [facility] Coding staff will review the response and follow-up if needed. Please note: Queries are made part of the Legal Health Record. If you have any questions, please contact the author of this message via ITS. Dear Dr. Duran, Documentation states: Sodium 134 History/Risk Factors: CML, Chemo, Obesity, Hypothyroid Clinical indicators: Nausea/vomiting Abnormal Sodium: 134, 136 Treatment: Sodium Chloride 0.9% 1000 ml IV 75 mls/hr Clinical significance of diagnostic testing and treatment CANNOT be assumed or coded without physician documentation of significance if any. Please clarify what abnormal laboratory signifies: Hyponatremia Disease process, please specify Infectious process, please specify Abnormal Lab Value Unable to determine Other, please specify hyponatremia from nutritional loses MTDD
== END 2019-05-08 16:19 | disposition home or self-care (01) ==
LOC: EC 09:42 → 5NMEDONC 14:25 → INTOOBSV 14:25 → 5NMEDONC 19:57 → UNDODISIN 05-08 16:19
PROVIDERS: ADMIT Family Medicine; ATTEND Family Medicine
DX: N13.2 Hydronephrosis with renal and ureteral calculous obstruction (principal); C92.10 Chronic myeloid leukemia, BCR/ABL-positive, not having achieved remission; N17.9 Acute kidney failure, unspecified; E66.2 Morbid (severe) obesity with alveolar hypoventilation; Z68.41 Body mass index [BMI] 40.0-44.9, adult; I69.354 Hemiplegia and hemiparesis following cerebral infarction affecting left non-dominant side; E87.1 Hypo-osmolality and hyponatremia; R16.2 Hepatomegaly with splenomegaly, not elsewhere classified; I11.9 Hypertensive heart disease without heart failure; E78.5 Hyperlipidemia, unspecified; E11.9 Type 2 diabetes mellitus without complications; E03.9 Hypothyroidism, unspecified; D64.9 Anemia, unspecified; E87.5 Hyperkalemia; F12.90 Cannabis use, unspecified, uncomplicated; Z79.82 Long term (current) use of aspirin; Z79.4 Long term (current) use of insulin; Z79.01 Long term (current) use of anticoagulants; Z79.890 Hormone replacement therapy; Z79.899 Other long term (current) drug therapy; Z85.810 Personal history of malignant neoplasm of tongue; Z87.891 Personal history of nicotine dependence; Z92.21 Personal history of antineoplastic chemotherapy; Z82.61 Family history of arthritis; Z82.69 Family history of other diseases of the musculoskeletal system and connective tissue; Z83.49 Family history of other endocrine, nutritional and metabolic diseases; Z83.3 Family history of diabetes mellitus; Z82.49 Family history of ischemic heart disease and other diseases of the circulatory system
CPT/HCPCS: 96376 ×2; 96374; 96375; 99285; 36415; 93005; 80053; 82150; 83690; 84550; 85025; 81001; 76770; 74177; G0378 ×2; J2270; J2405; C9113; Q9967; 80048